=== PATIENT | female | born 1955 | race Caucasian/White ===

== ENCOUNTER → 2016-09-15 | Outpatient (CLI) | payer OTHER ==
[~2016-09-15] MED LIST: BACTRIM DS TABL1 TA1 PO; BAYER ASPIRIN325 M1 PO; CARAFATE PO; EFFIENT10 MG PO; ESCITALOPRAM OX10 MG PO; K-DUR20 ME1 PO; LASIX20 MG PO; LEXAPRO PO; LIPITOR PO; LIPITOR20 MG PO; LOTENSIN20 MG PO; LOTREL 5/10 MG1 CAP PO; LOTREL PO; METHADONE PO; NAPROXEN PO; NEXIUM PO; NICOTINE T1 PATCH .2 TOP; NITROGLYGERIN0.4 MG SL; NORVASC10 MG PO; PATIENT'S PHARMACY; PREDNISONE10 MG PO; PRILOSEC PO; PROAIR HFA8.5 GM IH; PYRIDIUM PO; SPIRIVA18 MCG INH; SYMBICORT INH; TOPROL XL PO; WOMEN'S ONE A DAY PO
--- NOTE | ~2016-09-15 | MY11 ---
[facility] A Service of [facility] RADIOLOGY TEXT RESULTS PATIENT: KOLBY NOONAN LOCATION: [facility] : 53 UNIT #: [id number] AGE: [address]: Devin Palomino MD SEX: F ORDER DR: [id number] [address] [address] [id number] O MR#: [id number] Acc #: [id number] NAME: KOLBY NOONAN : 1955 SEX: F STUDY DATE/TIME: 09/15/2016 12:05 UNIT: [facility] ROOM: STUDY DESCRIPTION: MY Mammogram Screening Dig Pedro Attending Physician: Devin Palomino M.D. Referring Physician: Devin Palomino M.D. Ordering Physician: Devin Palomino M.D. Primary Care Physician: Devin Palomino M.D. MEDICAL IMAGING REPORT This report is preliminary unless electronic signature is present. EXAM Digital screening mammogram 09/15/2016 HISTORY 61-year-old woman positive family history, maternal first cousin. Annual screen. New baseline mammogram. COMPARISON None available. Prior mammograms 10+ years ago. FINDINGS Digital imaging of each breast was completed utilizing a two-view examination of each breast in craniocaudal and mediolateral-oblique projections. Review and interpretation of digital mammograms include a second review in conjunction with FDA-approved CAD device. There is a normal parenchymal presentation bilaterally consistent with the patient's age. There are no breast masses imaged and no parenchymal asymmetry is visualized. There are no suspicious microcalcifications and I see no focal architectural disturbance. IMPRESSION Negative screening digital mammogram. One-year followup recommended. ADDENDUM Breast parenchyma is fatty replaced. Patients over the age of 40 are entered into a reminder system with target due date for the next mammogram. A result letter will also be sent to the patient. BIRADS: 1 Negative [facility] A Service of [facility] RADIOLOGY TEXT RESULTS PATIENT: KOLBY NOONAN LOCATION: [facility] : 53 UNIT #: [id number] AGE: [address]: Devin Palomino MD SEX: F ORDER DR: Dictated by... Lex Lakhani M.D. THIS IS AN ELECTRONICALLY VERIFIED REPORT Lex Lakhani M.D. at 09/15/2016 1:48 PM LES/boyd TD: 09/15/2016 13:22 JOB #: [id number] MEDICAL IMAGING REPORT Page 1 of 1
== END | disposition home or self-care (01) ==
LOC: SMAM 11:30
DX: Z12.31 Encounter for screening mammogram for malignant neoplasm of breast (principal); Z80.3 Family history of malignant neoplasm of breast
CPT/HCPCS: G0202